=== PATIENT | male | born 1985 | race Caucasian/White ===

== ENCOUNTER 2016-10-16 20:27 | Emergency (ER) | payer BC ==
[2016-10-16 20:34] VITALS: BP 151/105
[2016-10-16] MEDS ORDERED: HYDROcodone/ACETAMIN 5-325 MG* 1 TAB PO ONE ×3 (22:00→22:08)
--- NOTE | 2016-10-16 23:41 | ED ---
Throat Pain/Nasal Congestion - HPI Summary HPI Summary: Patient arrives to ED with CC of left sided lower dental pain and infection which started about 1 week ago and is progressively getting worse despite being placed on abx yesterday by UC. He was also placed on diclofenac yesterday d/t nerve root exposure of the tooth. He states pain is getting worse and he cannot eat, drink or sleep. Pain is located in the left lower molars and radiates to the ear and the neck. Patient is requesting pain management as tylenol or ibuprofen has not helped. He has an appt next wednesday to see a dentist for extractions. Patient is a smoker and has poor dental hygiene and care. Denies other health problems including diabetes. Patient notes to some high BP's but nothing for which he takes medications. - History of Current Complaint Chief Complaint: EDDentalPain Time Seen by Provider: 10/16/16 20:34 Hx Obtained From: Patient Onset/Duration: Gradual Onset Severity: Severe - Epiglottits Risk Factors Epiglottis Risk Factors: Negative - Allergies/Home Medications Allergies/Adverse Reactions: Allergies Allergy/AdvReac Type Severity Reaction Status Date / Time No Known Allergies Allergy Verified 02/08/16 14:56 PMH/Surg Hx/FS Hx/Imm Hx Previously Healthy: Yes Endocrine/Hematology History: Denies: Hx Anticoagulant Therapy, Hx Diabetes, Hx Thyroid Disease Cardiovascular History: Denies: Hx Congestive Heart Failure, Hx Deep Vein Thrombosis, Hx Hypertension , Hx Myocardial Infarction, Hx Pacemaker/ICD Respiratory History: Denies: Hx Asthma, Hx Chronic Obstructive Pulmonary Disease (COPD), Hx Lung Cancer GI History: Reports: Hx Ulcer - "start of stomach ucler" by [facility] provider 6 years ago--no testing. 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, History Other Infectious Disease - daughter had mrsa Denies: Hx Clostridium Difficile, Hx Hepatitis, Hx Human Immunodeficiency Virus (HIV), Hx Shingles, Hx Tuberculosis, Hx Known/Suspected VRE, Hx Known/ Suspected VRSA, Traveled Outside the [place] in Last 30 Days - Family History Known Family History: Positive: Hypertension Negative: Cardiac Disease - Social History Occupation: Employed Full-time Lives: With Family Alcohol Use: Rare Hx Substance Use: Yes Substance Use Type: Reports: Marijuana Hx Tobacco Use: Yes Smoking Status (MU): Light Every Day Tobacco Smoker Review of Systems Constitutional: Negative Positive: Dental Pain Cardiovascular: Negative Respiratory: Negative Positive: no symptoms reported, see HPI Musculoskeletal: Negative Skin: Negative Neurological: Negative Psychological: Normal All Other Systems Reviewed And Are Negative: Yes Physical Exam Triage Information Reviewed: Yes Vital Signs On Initial Exam: Initial Vitals Temp Pulse Resp BP Pulse Ox 98.7 F 89 15 151/105 100 10/16/16 20:28 10/16/16 20:28 10/16/16 20:28 10/16/16 20:28 10/16/16 20:28 Vital Signs Reviewed: Yes Appearance: Positive: Well-Appearing, Well-Nourished Skin: Positive: Warm, Skin Color Reflects Adequate Perfusion Head/Face: Positive: Normal Head/Face Inspection, Temporal Artery Tenderness Eyes: Positive: Normal, EOMI, DAVON ENT: Positive: Normal ENT inspection, Pharynx normal, TMs normal Dental: Positive: Percussion Tenderness @ - left lower mandible extending to neck, Gross Decay/Caries @ - throughout, Dental Fracture @ - left upper and lower molars and right lower molar, Abscess @ - left lower molar Neck: Positive: Supple, Tenderness @ - left cervical and anterior LN Respiratory/Lung Sounds: Positive: Clear to Auscultation, Breath Sounds Present Cardiovascular: Positive: Normal Neurological: Positive: Alert, Oriented to Person Place, Time, CN Intact II-III , Speech Normal Psychiatric: Positive: Normal AVPU Assessment: Alert - Frazer Coma Scale Best Eye Response: 4 - Spontaneous Best Motor Response: 6 - Obeys Commands Best Verbal Response: 5 - Oriented Diagnostics - Vital Signs Vital Signs Temp Pulse Resp BP Pulse Ox 10/16/16 20:28 98.7 F 89 15 151/105 100 - Laboratory Lab Statement: Any lab studies that have been ordered have been reviewed, and results considered in the medical decision making process. EENT Course/Dx - Course Course Of Treatment: Evaluated for pain management. Ispot revealed no prior contolled substances. Cracked tooth on lower molar left. Currently taking penicillin since last night. will not change abx. patient has appt next wednesday and will defer to dentist for medication change or assessment. pain medication given in ED and rx sent home for oxycodone. No dental abscess or lesions seen over area of concern. Erythema at site of pain. No drainage from area. Several dental caries, cavities, crowding and broken teeth throughout. Pain on palpation over mandible. No TMJ tenderness. No pain with opening and closing mouth. Poor dental hygiene and outpatient dental care. Will treat for possible dental infection/abscess based on symptoms of pain and radiation to jaw and ear. No allergies. Patient to follow up immediately with dentist. - Differential Diagnoses Differential Diagnoses: Dental Abscess, Dental Caries, Odontogenic Pain - Diagnoses Provider Diagnoses: Dental abscess Discharge - Discharge Plan Condition: Stable Disposition: HOME Prescriptions: oxyCODONE/Acetamin 10/325(NF) [Percocet 10/325 (NF)] 1 tab PO Q6H #12 tab MDD 4 Patient Education Materials: Dental Abscess (ED) Referrals: Non Staff,Doctor [Primary Care Provider] - Additional Instructions: Continue to take your medications as directed. You have been diagnosed with dental pain with possible infection: If you have any questions about your medication, please contact us or ask your pharmacist. Salt water rinses several times per day will improve healing time. Ibuprofen 600mg three times daily with meals for discomfort. For breakthrough pain, you may take the oxycodone as prescribed to you on a full stomach. May use lollicaines over the area for comfort. Follow up with a dentist for routine care to prevent recurrence of infections. If fever, worsening pain or swelling develops, see your PCP, dentist or come back to the Emergency Department. Images - Images Dental: 1 - dental abscess and cracked tooth
== END 2016-10-16 22:22 | disposition home or self-care (01) ==
LOC: ED 20:27
DX: K04.7 Periapical abscess without sinus (principal); K08.89 Other specified disorders of teeth and supporting structures; F17.210 Nicotine dependence, cigarettes, uncomplicated
CPT/HCPCS: 99282